=== PATIENT | male | born 1955 | race Caucasian/White ===

== ENCOUNTER 2018-04-22 13:39 | Inpatient (IN) | payer MEDICARE, MEDICAID ==
[~2018-04-22] VITALS: Ht 175.3 cm; Wt 63.9 kg
[2018-04-22] MEDS ORDERED: ASPIRIN 81 MG TABLET CHEW PO ONE (14:30)
[2018-04-22 14:39] LABS: BASOPHILS # (AUTO) 0.02 x10^3/uL (0-0.1); BASOPHILS % (AUTO) 0 % (0-1); EOSINOPHILS # (AUTO) 0.08 x10^3/uL (0-0.4); EOSINOPHILS % (AUTO) 1 % (1-7); LYMPHOCYTES # (AUTO) 1.33 x10^3/uL (1-3.4); LYMPHOCYTES % (AUTO) 22 % (22-44); MD NO; MEAN CORPUSCULAR HEMOGLOBIN 34.7 pg (27.5-34.5); MEAN CORPUSCULAR HGB CONC 33.9 g/dL (33.2-36.2); MEAN CORPUSCULAR VOLUME 102.4 fL (81-97); MONOCYTES # (AUTO) 0.48 x10^3/uL (0.2-0.8); MONOCYTES % (AUTO) 8 % (2-9); NEUTROPHILS # (AUTO) 4.07 x10^3/uL (1.8-6.8); NEUTROPHILS % (AUTO) 68 % (42-75); PLATELET COUNT 269 x10^3/uL (130-400); RED BLOOD COUNT 3.88 x10^6/uL (4.38-5.82); RED CELL DISTRIBUTION WIDTH 12.8 % (9.4-14.8)
[2018-04-22] MEDS ORDERED: ASPIRIN 81 MG TABLET CHEW ONE (14:39)
[2018-04-22 14:48] LABS: ALANINE AMINOTRANSFERASE 24 U/L (12-78); ALBUMIN 3.6 g/dL (3.4-5.0); ANION GAP 9 mmol/L (5-15); CALCIUM 8.6 mg/dL (8.5-10.1); CHLORIDE 104 mmol/L (98-107)
[2018-04-22 14:53] LABS: ALKALINE PHOSPHATASE 76 U/L (45-117); BILIRUBIN,TOTAL 0.3 mg/dL (0.2-1.0); CREATININE 0.72 mg/dL (0.7-1.3); TOTAL PROTEIN 7.6 g/dL (6.4-8.2); TROPONIN I < 0.015 ng/mL (0.000-0.045)
[2018-04-22] MEDS ORDERED: PHEN50TA4 PO (16:53)
[2018-04-22] MEDS ORDERED: CYCL-259 PO (16:53)
[2018-04-22] MEDS ORDERED: PRIM250T PO (16:53)
[2018-04-22] MEDS ORDERED: FLUO40CA2 PO (16:57)
[2018-04-22] MEDS ORDERED: CYCLOBENZAPRINE 10 MG TABLET PO PRN (17:00)
[2018-04-22] MEDS ORDERED: BISACODYL 10 MG SUPP PR PRN (17:00)
[2018-04-22] MEDS ORDERED: DOCUSATE 100 MG CAPSULE PO PRN (17:00)
[2018-04-22] MEDS ORDERED: NITROGLYCERIN 0.4 MG BOTTLE (25 TABS) SL PRN (17:00)
[2018-04-22] MEDS ORDERED: ONDANSETRON 2MG/ML, 2ML IVPush PRN (17:00)
[2018-04-22] MEDS ORDERED: ACETAMINOPHEN 325 MG TABLET PO PRN (17:00)
[2018-04-22] MEDS ORDERED: morphine SULFATE 10 MG/ML, 1ML IVPush PRN (17:00)
[2018-04-22] MEDS ORDERED: ENALAPRILAT 1.25 MG/ML, 2ML IVPush PRN (17:00)
[2018-04-22] MEDS ORDERED: ONDANSETRON ODT 4 MG PO PRN (17:00)
[2018-04-22] MEDS ORDERED: POLYETHYLENE GLYCOL 17 GM PACKET PO PRN (17:00)
[2018-04-22 17:46] VITALS: BP 146/82
[2018-04-22] MEDS ORDERED: POTASSIUM CHLORIDE 20 MEQ TAB.ER.PRT PO ONE (17:56)
[2018-04-22] MEDS: ENOXAPARIN 40 MG/0.4 ML SQ SCH (18:33)
[2018-04-22] MEDS: PHENYTOIN 100 MG CAPSULE PO SCH (20:44)
[2018-04-22] MEDS: AMOXICILLIN 500 MG CAPSULE PO SCH (20:44)
[2018-04-22] MEDS: PRIMIDONE 250 MG TABLET PO SCH (20:44)
[2018-04-22 21:21] VITALS: BP 124/73
[2018-04-22 22:38] LABS: TROPONIN I < 0.015 ng/mL (0.000-0.045)
[2018-04-23 01:31] VITALS: BP 135/81
[2018-04-23 04:32] LABS: ANION GAP 6 mmol/L (5-15); CALCIUM 8.8 mg/dL (8.5-10.1); CHLORIDE 108 mmol/L (98-107)
[2018-04-23 04:33] LABS: BASOPHILS # (AUTO) 0.02 x10^3/uL (0-0.1); BASOPHILS % (AUTO) 0 % (0-1); EOSINOPHILS # (AUTO) 0.07 x10^3/uL (0-0.4); EOSINOPHILS % (AUTO) 1 % (1-7); LYMPHOCYTES # (AUTO) 1.62 x10^3/uL (1-3.4); LYMPHOCYTES % (AUTO) 33 % (22-44); MD NO; MEAN CORPUSCULAR HEMOGLOBIN 33.8 pg (27.5-34.5); MEAN CORPUSCULAR HGB CONC 33.6 g/dL (33.2-36.2); MEAN CORPUSCULAR VOLUME 100.8 fL (81-97); MEAN PLATELET VOLUME 8.4 fL (7.4-10.4); MONOCYTES # (AUTO) 0.47 x10^3/uL (0.2-0.8); MONOCYTES % (AUTO) 10 % (2-9); NEUTROPHILS # (AUTO) 2.78 x10^3/uL (1.8-6.8); NEUTROPHILS % (AUTO) 56 % (42-75); PLATELET COUNT 245 x10^3/uL (130-400); RED BLOOD COUNT 3.67 x10^6/uL (4.38-5.82); RED CELL DISTRIBUTION WIDTH 13.1 % (9.4-14.8)
[2018-04-23 04:38] LABS: CREATININE 0.68 mg/dL (0.7-1.3); TROPONIN I < 0.015 ng/mL (0.000-0.045)
[2018-04-23 04:59] LABS: THYROID STIMULATING HORMONE 0.427 mIU/L (0.358-3.740)
[2018-04-23 05:06] LABS: FOLATE LEVEL > 20.0 ng/mL (3.1-17.5)
[2018-04-23 06:50] VITALS: BP 135/81
[2018-04-23] MEDS: FLUOXETINE HCL 20 MG CAPSULE PO SCH (08:25)
[2018-04-23] MEDS: PRIMIDONE 250 MG TABLET PO SCH ×2 (08:25→21:44)
[2018-04-23] MEDS: PHENYTOIN 100 MG CAPSULE PO SCH ×2 (08:26→21:44)
[2018-04-23] MEDS: ASPIRIN 325 MG TABLET EC PO SCH (08:26)
[2018-04-23] MEDS: AMOXICILLIN 500 MG CAPSULE PO SCH ×2 (08:26→21:44)
[2018-04-23] MEDS ORDERED: REGADENOSON 0.4 MG/5 ML SYRINGE ONE (09:07)
[2018-04-23 13:09] VITALS: BP 130/87
[2018-04-23] MEDS: ENOXAPARIN 40 MG/0.4 ML SQ SCH (18:11)
[2018-04-23] MEDS ORDERED: OMNIPAQUE 350 MG/ML, 100ML BOTTLE ONE (18:49)
[2018-04-23 19:06] VITALS: BP 162/86
[2018-04-24 04:13] VITALS: BP 144/84
[2018-04-24] MEDS: ASPIRIN 325 MG TABLET EC PO SCH (07:52)
[2018-04-24] MEDS: FLUOXETINE HCL 20 MG CAPSULE PO SCH (07:52)
[2018-04-24] MEDS: AMOXICILLIN 500 MG CAPSULE PO SCH ×2 (07:52→20:57)
[2018-04-24] MEDS: PRIMIDONE 250 MG TABLET PO SCH ×2 (07:53→20:57)
[2018-04-24] MEDS: PHENYTOIN 100 MG CAPSULE PO SCH ×2 (07:53→20:58)
[2018-04-24 08:04] VITALS: BP 129/85
[2018-04-24 13:18] VITALS: BP 164/84
[2018-04-24] MEDS: CYANOCOBALAMIN 1,000 MCG TABLET PO SCH (15:00)
[2018-04-24] MEDS: ENOXAPARIN 40 MG/0.4 ML SQ SCH (16:57)
[2018-04-24 19:27] VITALS: BP 148/87
[2018-04-25 04:50] VITALS: BP_SYST 139; BP_SYST 172; BP_DIAS 82; BP_DIAS 87
[2018-04-25] MEDS: ASPIRIN 325 MG TABLET EC PO SCH (06:08)
[2018-04-25 07:08] VITALS: BP 131/78
[2018-04-25] MEDS: AMOXICILLIN 500 MG CAPSULE PO SCH (08:34)
[2018-04-25] MEDS: PRIMIDONE 250 MG TABLET PO SCH (08:34)
[2018-04-25] MEDS: FLUOXETINE HCL 20 MG CAPSULE PO SCH (08:35)
[2018-04-25] MEDS: PHENYTOIN 100 MG CAPSULE PO SCH (08:35)
[2018-04-25] MEDS: CYANOCOBALAMIN 1,000 MCG TABLET PO SCH (08:35)
[2018-04-25] MEDS ORDERED: ASPI-650 PO (10:05)
[2018-04-25] MEDS ORDERED: CYAN10005 PO (10:05)
== END 2018-04-25 12:16 | disposition home or self-care (01) | DRG 74 ==
LOC: ED 15:06 → EDIP 16:30 → 5SO 17:42
PROVIDERS: ADMIT Internal Medicine; ATTEND Internal Medicine
DX: G90.8 Other disorders of autonomic nervous system (principal); I08.0 Rheumatic disorders of both mitral and aortic valves; D75.89 Other specified diseases of blood and blood-forming organs; I44.4 Left anterior fascicular block; K04.7 Periapical abscess without sinus; E87.6 Hypokalemia; I95.9 Hypotension, unspecified; R55 Syncope and collapse; R61 Generalized hyperhidrosis; R62.50 Unspecified lack of expected normal physiological development in childhood; R63.4 Abnormal weight loss; Z68.20 Body mass index [BMI] 20.0-20.9, adult; G40.909 Epilepsy, unspecified, not intractable, without status epilepticus; G89.29 Other chronic pain; Z79.82 Long term (current) use of aspirin; M25.569 Pain in unspecified knee; Z82.49 Family history of ischemic heart disease and other diseases of the circulatory system; I25.10 Atherosclerotic heart disease of native coronary artery without angina pectoris
CPT/HCPCS: 36415; 71045; 71275; 78452; 80048; 80053; 80185; 82607; 82746; 83735; 83880; 84100; 84443; 84484; 85025; 93005; 93017; 93306; 99285; J1650; J2785; Q9967; A9502; C9898